=== PATIENT | female | born 1975 | race Caucasian/White ===

== ENCOUNTER 2024-04-29 14:41 | Emergency (ER) | payer BC, SELFPAY ==
[2024-04-29] MEDS ORDERED: Ketorolac Tromethamine 30 MG (1 mL) VIAL ONE (15:51)
[2024-04-29] MEDS ORDERED: Morphine 4 MG/ML VIAL ONE (15:51)
[2024-04-29 16:08] LABS: #Basophils 0.03 10x3/uL (0.0-0.2); #Eosinophils 0.06 10x3/uL (0.0-0.5); #Monocytes 0.93 10x3/uL (0.0-1.1); #Neutrophils 10.43 10x3/uL (1.5-8.4); %Basophils 0.2 % (0.0-2.0); %Eosinophils 0.5 % (0.0-6.0); %Lymphocytes 9.9 % (18.0-47.0); %Monocytes 7.2 % (0.0-10.0); %Neutrophils 81.2 % (40.0-75.0); Hematocrit 41.8 % (34.9-44.5); Hemoglobin 14.6 g/dL (12.0-15.5); Mean Corpuscular HGB CONC 34.9 g/dL (32.0-36.0); Mean Corpuscular Volume 82.9 fL (81.6-98.3); Platelet Count 244 10x3/uL (150-450); RBC Distribution Width 14.3 % (11.5-14.5); Red Blood Cell (RBC) Count 5.04 10x6/uL (3.90-5.03); White Blood Cell (WBC) Count 12.9 10x3/uL (3.5-10.5)
[2024-04-29 16:15] LABS: ALT (SGPT) 37 U/L (8-55); AST (SGOT) 19 U/L (5-34); Acetaminophen Less than 10 mcg/mL (Less than 10); Albumin 3.9 g/dL (3.5-5.0); Alcohol Less than 10.0 mg/dL (Less than 10); Alkaline Phosphatase 161 U/L (40-110); Anion Gap 21 mmol/L (10-20); BUN (Urea Nitrogen) 24 mg/dL (7.0-18.7); Bilirubin, Total 1.6 mg/dL (0.2-1.2); Calc. Creatinine Clearance 0 mL/min (70-130); Calcium 9.7 mg/dL (7.8-10.44); Carbon Dioxide 21 mmol/L (22-29); Chloride 97 mmol/L (98-107); Estimated GFR 86; Globulin 2.6 g/dL (2.4-3.5); Potassium 4.9 mmol/L (3.5-5.1); Protein, Total 6.5 g/dL (6.0-8.3); Salicylate Less than 8.0 mg/dL (Less than 8.0); Sodium 134 mmol/L (136-145)
[2024-04-29 16:20] LABS: Glucose 467 mg/dL (70-105)
[2024-04-29 16:21] LABS: Troponin I Less than 0.010 ng/mL (< 0.028)
[2024-04-29 16:31] LABS: Amphetamine Not Detected (NotDetected); Barbiturates Screen Not Detected (NotDetected); Benzodiazepine Screen Not Detected (NotDetected); Cocaine Metabolite Screen Not Detected (NotDetected); Methadone Not Detected (NotDetected); Methamphetamine Not Detected (NotDetected); Opiate Screen Not Detected (NotDetected); Oxycodone Screen Not Detected (NotDetected); Phencyclidine (PCP) Not Detected (NotDetected); THC/Cannabinoid Screen Not Detected (NotDetected); Tricyclic Screen Not Detected (NotDetected)
[2024-04-29] MEDS ORDERED: HYDROmorphone 0.5 MG/0.5 ML SYRINGE ONE ×2 (17:00→18:10)
[2024-04-29] MEDS ORDERED: Insulin Regular, Human 100 UNIT/ML 10 ML VIAL ONE (17:25)
[2024-04-29 17:43] LABS: Actual Bicarbonate (HCO3v) 22.3 mEq/L (22-28); Analyzer IN Cardio CS ER; Base Excess -1.7 mEq/L (-2 - +2); Calcium, Ionized (venous) 1.12 mmol/L (1.16-1.32); Chloride (VBG) 97 mmol/L (98-106); Hematocrit-VBG 42 % (36.0-47.0); Hemoglobin (Hb) 14.3 g/dL (11.7-16.0); Potassium (VBG) 4.58 mmol/L (3.70-5.30); Puncture Site Other Site; RapidComm Collect By LAB; Sodium 134 mmol/L (133-146); pH (venous) 7.412 (7.32-7.43)
[2024-04-29] MEDS ORDERED: Ondansetron PF 4 MG/2 ML Vial ONE (18:10)
== END 2024-04-29 18:31 | disposition left against medical advice (07) ==
LOC: CSHERS 14:41
DX: M54.50 Low back pain, unspecified (principal); E11.9 Type 2 diabetes mellitus without complications; E66.9 Obesity, unspecified; X50.0XXA Overexertion from strenuous movement or load, initial encounter; Y93.89 Activity, other specified; Z55.6 Problems related to health literacy; Z75.3 Unavailability and inaccessibility of health-care facilities; Z87.891 Personal history of nicotine dependence
CPT/HCPCS: 72148; 80053; 80306; 80307; 82805; 84145; 84443; 84484; 85025; 86140; 96361; 96372; 96374; 96375; 96376; J1815; J1885; J2272; J2405

== ENCOUNTER 2024-05-06 18:46 | Emergency (ER) | payer BC, SELFPAY ==
[2024-05-06] MEDS ORDERED: Morphine 4 MG/ML VIAL ONE (19:27)
== END 2024-05-06 20:00 | disposition home or self-care (01) ==
LOC: CSHERS 18:46
DX: S32.039A Unspecified fracture of third lumbar vertebra, initial encounter for closed fracture (principal); E11.9 Type 2 diabetes mellitus without complications; Z87.891 Personal history of nicotine dependence; X58.XXXA Exposure to other specified factors, initial encounter
CPT/HCPCS: 96372; 99283; J2272

== ENCOUNTER 2024-05-13 22:00 | Emergency (ER) | payer SELFPAY ==
[2024-05-13] MEDS ORDERED: HYDROcodone/Acetaminophen 5/325 mg Tablet ONE (22:20)
== END 2024-05-13 22:30 | disposition home or self-care (01) ==
LOC: CSHERS 22:00
DX: L02.413 Cutaneous abscess of right upper limb (principal); M54.32 Sciatica, left side; Z79.899 Other long term (current) drug therapy; Z79.84 Long term (current) use of oral hypoglycemic drugs; E11.9 Type 2 diabetes mellitus without complications; E66.9 Obesity, unspecified; Z87.891 Personal history of nicotine dependence
CPT/HCPCS: 99283

== ENCOUNTER 2024-06-10 21:20 | Emergency (ER) | payer BC, SELFPAY ==
[2024-06-10] MEDS ORDERED: Dexamethasone 10 MG/ML VIAL ONE (21:53)
[2024-06-10] MEDS ORDERED: HYDROcodone/Acetaminophen 5/325 mg Tablet ONE (21:56)
[2024-06-10] MEDS ORDERED: Ketorolac Tromethamine 30 MG (1 mL) VIAL ONE (21:57)
== END 2024-06-10 22:13 | disposition home or self-care (01) ==
LOC: CSHERS 21:20
DX: M54.42 Lumbago with sciatica, left side (principal); E11.9 Type 2 diabetes mellitus without complications
CPT/HCPCS: 96372; J1100; J1885

== ENCOUNTER 2024-06-11 09:03 | Emergency (ER) | payer SELFPAY ==
[2024-06-11 09:56] LABS: #Basophils 0.02 10x3/uL (0.0-0.2); #Monocytes 0.29 10x3/uL (0.0-1.1); #Neutrophils 11.81 10x3/uL (1.5-8.4); %Basophils 0.2 % (0.0-2.0); %Monocytes 2.3 % (0.0-10.0); %Neutrophils 91.8 % (40.0-75.0); Hematocrit 43.1 % (34.9-44.5); Mean Corpuscular HGB CONC 34.8 g/dL (32.0-36.0); Mean Corpuscular Hemoglobin 28.3 pg (27.0-33.0); Mean Corpuscular Volume 81.3 fL (81.6-98.3); Mean Platelet Volume 9.2 fL (7.4-10.4); Platelet Count 272 10x3/uL (150-450); RBC Distribution Width 13.1 % (11.5-14.5); White Blood Cell (WBC) Count 12.9 10x3/uL (3.5-10.5)
[2024-06-11 10:03] LABS: Critical Call Chem-Lactate AT ERS.PA2 READ BACK RESULTS @ 1003
[2024-06-11 10:05] LABS: Anion Gap 19 mmol/L (10-20); BUN (Urea Nitrogen) 23 mg/dL (7.0-18.7); Calc. Creatinine Clearance 0 mL/min (70-130); Carbon Dioxide 22 mmol/L (22-29); Chloride 97 mmol/L (98-107); Potassium 4.9 mmol/L (3.5-5.1); Sodium 133 mmol/L (136-145)
[2024-06-11 10:06] LABS: ALT (SGPT) 41 U/L (8-55); AST (SGOT) 24 U/L (5-34); Albumin 3.8 g/dL (3.5-5.0); Alkaline Phosphatase 164 U/L (40-110); Bilirubin, Total 1.1 mg/dL (0.2-1.2); Calcium 9.7 mg/dL (7.8-10.44); Critical Call Chemistry AT ERS.PA2 READ BACK RESULTS @ 1005; Estimated GFR 83; Globulin 2.8 g/dL (2.4-3.5); Glucose 481 mg/dL (70-105); Protein, Total 6.6 g/dL (6.0-8.3)
[2024-06-11 10:20] LABS: Actual Bicarbonate (HCO3v) 19.2 mEq/L (22-28); Analyzer IN Cardio CS ER; Base Excess -5.9 mEq/L (-2 - +2); Calcium, Ionized (venous) 1.16 mmol/L (1.16-1.32); Chloride (VBG) 96 mmol/L (98-106); Hematocrit-VBG 47 % (36.0-47.0); Hemoglobin (Hb) 16.1 g/dL (11.7-16.0); Potassium (VBG) 4.61 mmol/L (3.70-5.30); Puncture Site Other Site; RapidComm Collect By LAB; Sodium 134 mmol/L (133-146); pH (venous) 7.332 (7.32-7.43)
[2024-06-11] MEDS ORDERED: Morphine 4 MG/ML VIAL ONE ×3 (10:55→14:04)
[2024-06-11] MEDS ORDERED: Ketorolac Tromethamine 30 MG (1 mL) VIAL ONE (10:55)
[2024-06-11] MEDS ORDERED: Ondansetron PF 4 MG/2 ML Vial ONE (10:55)
[2024-06-11] MEDS ORDERED: Lidocaine 4% Patch ONE (14:04)
[2024-06-11] MEDS ORDERED: HYDROcodone/Acetaminophen 5/325 mg Tablet ONE (15:44)
[2024-06-11] MEDS ORDERED: HYDROmorphone 0.5 MG/0.5 ML SYRINGE ONE ×2 (16:20→16:25)
== END 2024-06-11 16:57 | disposition home or self-care (01) ==
LOC: CSHERS 09:03
DX: S32.038A Other fracture of third lumbar vertebra, initial encounter for closed fracture (principal); M54.50 Low back pain, unspecified; I10 Essential (primary) hypertension; E11.9 Type 2 diabetes mellitus without complications; Z87.891 Personal history of nicotine dependence; Z79.84 Long term (current) use of oral hypoglycemic drugs; Z79.899 Other long term (current) drug therapy; X58.XXXA Exposure to other specified factors, initial encounter; Y92.89 Other specified places as the place of occurrence of the external cause
CPT/HCPCS: 36415; 36416; 72157; 72158; 80053; 82010; 82805; 83605; 85025; 86141; 87040; 93005; 96361; 96374; 96375; 96376; J1885; J2272; J2405

== ENCOUNTER 2024-06-18 10:49 | Emergency (ER) | payer SELFPAY ==
[2024-06-18] MEDS ORDERED: Morphine 4 MG/ML VIAL ONE (13:54)
[2024-06-18] MEDS ORDERED: predniSONE 20 MG TAB ONE (13:54)
== END 2024-06-18 14:15 | disposition home or self-care (01) ==
LOC: CSHERS 10:49
DX: M54.32 Sciatica, left side (principal); E11.9 Type 2 diabetes mellitus without complications; Z87.891 Personal history of nicotine dependence
CPT/HCPCS: 96372; 99283; J2272; J7512

== ENCOUNTER 2024-07-08 13:07 | Emergency (ER) | payer BC, SELFPAY ==
[2024-07-08 15:23] LABS: Bilirubin Neg (Negative); Blood, Urine 10 (Negative); Glucose, Urine (Dipstick) >=1000 mg/dL (Negative); Ketone, Urine Negative (Negative); Leukocyte 500 (Negative); Nitrite Negative (Negative); Protein, Urine (Dipstick) 15 mg/dl (Neg-Trace); Specific Gravity, Urine 1.025 (1.005-1.030); Urobilinogen Normal mg/dL (Less than 2)
[2024-07-08 15:27] LABS: Clarity Hazy (Clear)
[2024-07-08 15:52] LABS: CAUTI Indications for Culture Pelvic or flank pain; RBC/HPF 0-3 HPF (0-3)
[2024-07-08 15:53] LABS: Bacteria/HPF 2+ HPF (None Seen); Mucous/LPF 2+ LPF (<2+)
[2024-07-08 15:54] LABS: WBC/HPF 21-50 HPF (0-3)
[2024-07-08 15:56] LABS: Urine Culture Reflex Yes Yes
[2024-07-08] MEDS ORDERED: Ondansetron ODT 4 MG TAB ONE ×2 (16:20→16:37)
[2024-07-08] MEDS ORDERED: Morphine 10 MG/ML VIAL ONE (16:20)
[2024-07-08] MEDS ORDERED: HYDROmorphone 0.5 MG/0.5 ML SYRINGE ONE (17:07)
== END 2024-07-08 17:40 | disposition home or self-care (01) ==
LOC: CSHERS 13:07
DX: M54.42 Lumbago with sciatica, left side (principal); N39.0 Urinary tract infection, site not specified; E11.9 Type 2 diabetes mellitus without complications; Z87.891 Personal history of nicotine dependence; W19.XXXA Unspecified fall, initial encounter; Y92.009 Unspecified place in unspecified non-institutional (private) residence as the place of occurrence of the external cause
CPT/HCPCS: 81001; 87086; 96372; 99283; J1171; J2270; Q0162

== ENCOUNTER 2024-07-22 06:31 | Emergency (ER) | payer BC, SELFPAY ==
[2024-07-22] MEDS ORDERED: Ketorolac Tromethamine 30 MG (1 mL) VIAL ONE (06:55)
[2024-07-22] MEDS ORDERED: Morphine 10 MG/ML VIAL ONE (06:55)
[2024-07-22] MEDS ORDERED: Ondansetron ODT 4 MG TAB ONE ×2 (06:55→07:09)
== END 2024-07-22 07:21 | disposition home or self-care (01) ==
LOC: CSHERS 06:31
DX: M54.42 Lumbago with sciatica, left side (principal); E11.9 Type 2 diabetes mellitus without complications; Z87.891 Personal history of nicotine dependence
CPT/HCPCS: 96372; 99283; J1885; J2270; Q0162

== ENCOUNTER 2024-08-18 19:18 | Emergency (ER) | payer SELFPAY | END 2024-08-18 20:13 | LOC: CSHERS 19:18 | DX: Z53.21 Procedure and treatment not carried out due to patient leaving prior to being seen by health care provider (principal) ==